=== PATIENT | female | born 1960 | race African-American/Black ===

== ENCOUNTER 2016-06-12 09:47 | Emergency (ER) | payer MEDICARE, MEDICAID ==
--- NOTE | 2016-06-12 10:11 | ER Document Report ---
ED GI/ - General Chief Complaint: Diarrhea Stated Complaint: ABDOMINAL PAIN Mode of Arrival: Ambulatory Information source: Patient TRAVEL OUTSIDE OF THE [place] IN LAST 30 DAYS: No - HPI Patient complains to provider of: Diarrhea Onset: Last week Timing/Duration: Gradual Quality of pain: Cramping Severity at maximum: Moderate Severity in ED: Mild Context: denies: Bad food, Out of the country travel, Location: LLQ, RLQ Vaginal bleeding (Compared to normal period): None Menstrual period history: Post-menopausal Exacerbated by: Food, Other - SEIZURE MED Relieved by: Denies - Related Data Allergies/Adverse Reactions: No Known Allergies Allergy (Verified 06/12/16 10:16) Past Medical History - General Information source: Patient - Social History Smoking Status: Never Smoker Cigarette use (# per day): No Chew tobacco use (# tins/day): No Frequency of alcohol use: None Drug Abuse: None Lives with: Family Family History: Reviewed & Not Pertinent Patient has suicidal ideation: No Patient has homicidal ideation: No - Past Medical History Cardiac Medical History: Reports: None Pulmonary Medical History: Reports: None Neurological Medical History: Reports: Hx Seizures, Other - AVM Endocrine Medical History: Reports: None Renal/ Medical History: Reports: None. Denies: Hx Peritoneal Dialysis Malignancy Medical History: Reports: None GI Medical History: Reports: None Musculoskeltal Medical History: Reports None Psychiatric Medical History: Reports: None Past Surgical History: Reports: Hx Section, Hx Neurologic Surgery - AVM clip, brain sx x 2. Denies: Hx Pacemaker - Immunizations Hx Diphtheria, Pertussis, Tetanus Vaccination: Yes Review of Systems - Review of Systems Constitutional: No symptoms reported. denies: Chills, Fever EENT: No symptoms reported Cardiovascular: No symptoms reported Respiratory: No symptoms reported Gastrointestinal: See HPI Genitourinary: No symptoms reported Female Genitourinary: Post menopausal Musculoskeletal: No symptoms reported Skin: No symptoms reported Neurological/Psychological: No symptoms reported Physical Exam - Vital signs Vitals: Temp Pulse Resp BP Pulse Ox 98.9 F 104 H 20 126/86 H 98 06/12/16 09:51 06/12/16 09:51 06/12/16 09:51 06/12/16 09:51 06/12/16 09:51 Interpretation: Tachycardic - General General appearance: Appears well, Alert In distress: None - HEENT Head: Normocephalic Eyes: Normal Conjunctiva: Normal Ears: Normal Nasal: Normal Mouth/Lips: Normal Mucous membranes: Normal - Respiratory Respiratory status: No respiratory distress - Cardiovascular Rhythm: Regular - Abdominal Inspection: Normal Distension: No distension Bowel sounds: Normal Tenderness: Nontender - Extremities General upper extremity: Normal inspection General lower extremity: Normal inspection - Neurological Neuro grossly intact: Yes Cognition: Normal Orientation: AAOx4 - Psychological Associated symptoms: Normal affect, Normal mood - Skin Skin Temperature: Warm Skin Moisture: Dry Skin Color: Normal Skin Turgor: Elastic Course - Vital Signs Vital signs: Temp Pulse Resp BP Pulse Ox 98.9 F 104 H 20 126/86 H 98 06/12/16 09:51 06/12/16 09:51 06/12/16 09:51 06/12/16 09:51 06/12/16 09:51 - Laboratory Result Diagrams: 06/12/16 11:00 06/12/16 11:00 Laboratory results interpreted by me: 06/12/16 06/12/16 06/12/16 11:00 11:00 12:35 MCH 26.5 L Sodium 145.9 H Glucose 120 H Urine Protein 30 H Urine Ketones 20 H Urine Blood SMALL H Urine Bilirubin SMALL H Urine Urobilinogen 4.0 H Urine Ascorbic Acid 40 H Discharge - Discharge Clinical Impression: Diarrhea Qualifiers: Diarrhea type: unspecified type Qualified Code(s): R19.7 - Diarrhea, unspecified Condition: Stable Disposition: HOME, SELF-CARE Instructions: Diarrhea, Nonspecific ([facility]) Additional Instructions: TAKE RENARD-PECTATE OR PEPTO-BISMOL IF NEEDED TO MAKE YOUR STOOLS MORE FORMED & SOLID. CONTINUE YOUR USUAL MEDS. FOLLOW UP WITH YOUR PRIMARY CARE PROVIDER NEEDED. Forms: Return to Work Referrals: MAURICIO KRAFT MD [Primary Care Provider] - Follow up as needed
[2016-06-12 11:16] LABS: ABSOLUTE EOSINOPHILS # (AUTO) 0.1 10^3/uL (0.0-0.6); ABSOLUTE MONOCYTES (AUTO) 0.5 10^3/uL (0.1-1.4); ABSOLUTE NEUT (AUTO) 3.8 10^3/uL (1.7-8.2); BASOPHILS % (AUTO) 0.7 % (0-2); EOSINOPHILS % (AUTO) 1.5 % (0-6); HEMATOCRIT 42.2 % (36.0-47.0); HEMOGLOBIN 13.5 g/dL (12.0-15.5); HGB HCT DIFFERENCE -1.7; LYMPHOCYTES % (AUTO) 18.6 % (13-45); MEAN CORPUSCULAR HEMOGLOBIN 26.5 pg (27.0-33.4); MEAN CORPUSCULAR VOLUME 83 fl (80-97); MONOCYTES % (AUTO) 8.6 % (3-13); RED CELL DISTRIBUTION WIDTH 13.3 % (11.5-14.0); SEGMENTED NEUTROPHILS % (AUTO) 70.6 % (42-78); WHITE BLOOD COUNT 5.4 10^3/uL (4.0-10.5)
[2016-06-12 11:36] LABS: ALANINE AMINOTRANSFERASE 42 U/L (9-52); ALBUMIN 3.6 g/dL (3.5-5.0); ALKALINE PHOSPHATASE 70 U/L (38-126); ANION GAP 15 (5-19); ASPARTATE AMINO TRANSFERASE 20 U/L (14-36); BILIRUBIN,DIRECT 0.4 mg/dL (0.0-0.4); BILIRUBIN,TOTAL 0.7 mg/dL (0.2-1.3); BLOOD UREA NITROGEN 15 mg/dL (7-20); CALCIUM 9.3 mg/dL (8.4-10.2); CARBON DIOXIDE 24 mmol/L (22-30); CHLORIDE 107 mmol/L (98-107); CREATININE RESULT 0.93 mg/dL (0.52-1.25); GLUCOSE 120 mg/dL (75-110); POTASSIUM 3.7 mmol/L (3.6-5.0); SODIUM 145.9 mmol/L (137-145); TOTAL PROTEIN 6.8 g/dL (6.3-8.2)
[2016-06-12 12:48] LABS: APPEARANCE,URINE SLIGHTLY-CLOUDY; BILIRUBIN,URINE SMALL (NEGATIVE); GLUCOSE, URINE NEGATIVE (NEGATIVE); KETONES,URINE 20 mg/dL (NEGATIVE); LEUKOCYTE ESTERASE,URINE NEGATIVE (NEGATIVE); NITRITE,URINE NEGATIVE (NEGATIVE); PROTEIN,URINE 30 mg/dL (NEGATIVE); URINE SPECIFIC GRAVITY 1.029
[2016-06-12 13:46] VITALS: BP 93/70
== END 2016-06-12 13:46 | disposition home or self-care (01) ==
LOC: ER 09:47
DX: R19.7 Diarrhea, unspecified (principal); R10.31 Right lower quadrant pain; R10.32 Left lower quadrant pain; R00.0 Tachycardia, unspecified
CPT/HCPCS: 36415; 80053; 81001; 85025; 99284

== ENCOUNTER 2017-06-02 09:01 | Emergency (ER) | payer MEDICARE, MEDICAID ==
--- NOTE | 2017-06-02 09:15 | ER Document Report ---
ED Medical Screen (RME) - General Chief Complaint: Leg Swelling Stated Complaint: SWOLLEN LEGS/FEET Time Seen by Provider: 06/02/17 09:12 Notes: RME DISCLOSURE I have seen this patient as part of a Rapid Medical Evaluation and, if applicable, placed any initially appropriate orders. The patient will be seen and fully evaluated, including a full history and physical exam, by a provider ( in Main ED or Fast Track) when a room becomes available. 56-year-old female here with complaints of bilateral lower extremity swelling that started yesterday and has progressively worsened. She has not tried anything for the symptoms. She denies any chest pain shortness of breath. She denies having been on her feet for an extended period of time. She is eating drinking and urinating per usual. She denies any prior history of kidney failure or DVT. EXAM BLE 1+ to 2+ pitting edema (to the level of just below the knees) TRAVEL OUTSIDE OF THE [place] IN LAST 30 DAYS: No - Related Data Allergies/Adverse Reactions: No Known Allergies Allergy (Verified 06/12/16 10:16) Past Medical History - Social History Chew tobacco use (# tins/day): No Frequency of alcohol use: None Drug Abuse: None Neurological Medical History: Reports: Hx Seizures Renal/ Medical History: Denies: Hx Peritoneal Dialysis Past Surgical History: Reports: Hx Section, Hx Neurologic Surgery - AVM clip, brain sx x 2. Denies: Hx Pacemaker - Immunizations Hx Diphtheria, Pertussis, Tetanus Vaccination: Yes Physical Exam - Vital signs Vitals: Temp Pulse Resp BP Pulse Ox 98.9 F 69 16 123/73 100 06/02/17 09:09 06/02/17 09:09 06/02/17 09:09 06/02/17 09:09 06/02/17 09:09 Course - Vital Signs Vital signs: Temp Pulse Resp BP Pulse Ox 98.9 F 69 16 123/73 100 06/02/17 09:09 06/02/17 09:09 06/02/17 09:09 06/02/17 09:09 06/02/17 09:09
[2017-06-02 09:42] LABS: ABSOLUTE MONOCYTES (AUTO) 0.2 10^3/uL (0.1-1.4); ABSOLUTE NEUT (AUTO) 2.5 10^3/uL (1.7-8.2); BASOPHILS % (AUTO) 0.8 % (0-2); EOSINOPHILS % (AUTO) 1.1 % (0-6); HEMATOCRIT 37.8 % (36.0-47.0); HEMOGLOBIN 12.2 g/dL (12.0-15.5); LYMPHOCYTES % (AUTO) 25.7 % (13-45); MEAN CORPUSCULAR HEMOGLOBIN 27.2 pg (27.0-33.4); MEAN CORPUSCULAR HGB CONC 32.3 g/dL (32.0-36.0); MEAN CORPUSCULAR VOLUME 84 fl (80-97); MONOCYTES % (AUTO) 6.1 % (3-13); PLATELET COUNT 191 10^3/uL (150-450); RED BLOOD COUNT 4.48 10^6/uL (3.72-5.28); RED CELL DISTRIBUTION WIDTH 13.7 % (11.5-14.0); SEGMENTED NEUTROPHILS % (AUTO) 66.3 % (42-78); TOTAL CELLS COUNTED % (AUTO) 100 %; WHITE BLOOD COUNT 3.7 10^3/uL (4.0-10.5)
[2017-06-02 09:58] LABS: ALANINE AMINOTRANSFERASE 17 U/L (9-52); ALKALINE PHOSPHATASE 61 U/L (38-126); ANION GAP 11 (5-19); ASPARTATE AMINO TRANSFERASE 12 U/L (14-36); BILIRUBIN,DIRECT 0.3 mg/dL (0.0-0.4); BILIRUBIN,TOTAL 0.4 mg/dL (0.2-1.3); BLOOD UREA NITROGEN 20 mg/dL (7-20); CALCIUM 9.6 mg/dL (8.4-10.2); CARBON DIOXIDE 22 mmol/L (22-30); CHLORIDE 115 mmol/L (98-107); GLUCOSE 84 mg/dL (75-110); POTASSIUM 3.9 mmol/L (3.6-5.0); SODIUM 147.9 mmol/L (137-145); TOTAL PROTEIN 6.9 g/dL (6.3-8.2)
--- NOTE | 2017-06-02 11:19 | RADIOLOGY REPORT (SQ) ---
EXAM DESCRIPTION: CHEST 2 VIEWS COMPLETED DATE/TIME: 06/02/2017 11:11 am REASON FOR STUDY: Peripheral edema COMPARISON: 11/10/2003. EXAM PARAMETERS: NUMBER OF VIEWS: two views TECHNIQUE: Digital Frontal and Lateral radiographic views of the chest acquired. RADIATION DOSE: NA LIMITATIONS: none FINDINGS: LUNGS AND PLEURA: No new opacities, masses or pneumothorax. No pleural effusion. MEDIASTINUM AND HILAR STRUCTURES: No masses or contour abnormalities. HEART AND VASCULAR STRUCTURES: Heart stable in size. No evidence for failure. BONES: No acute findings. HARDWARE: None in the chest. OTHER: No other significant finding. IMPRESSION: NO ACUTE RADIOGRAPHIC FINDING IN THE CHEST. NO SIGNIFICANT CHANGE FROM PRIOR STUDY. TECHNICAL DOCUMENTATION: JOB ID: [id number] [employer]- All Rights Reserved Reading location - IP/workstation name: [email or web address]
--- NOTE | 2017-06-02 11:24 | ER Document Report ---
ED General - General Chief Complaint: Leg Swelling Stated Complaint: SWOLLEN LEGS/FEET Time Seen by Provider: 06/02/17 09:12 Mode of Arrival: Ambulatory Information source: Patient Notes: 56-year-old female with a history of seizure disorder, AVM (stable) presents with complaint of bilateral lower extremity swelling that started 1 day prior to arrival. Patient states that she fell asleep at the kitchen table last night and when she awoke she had swelling of her legs. She is unsure of how long she was asleep sitting upright in the chair with her legs on the floor. She denies any shortness of breath, chest pain, changes in medication, headache , visual changes, fever, chills, nausea, vomiting, abdominal pain, back pain, dysuria, hematuria. She denies any recent trauma, surgery, travel, estrogen use , history of PE and DVT. TRAVEL OUTSIDE OF THE [place] IN LAST 30 DAYS: No - HPI Onset: Yesterday Onset/Duration: Sudden Quality of pain: No pain Exacerbated by: Walking Relieved by: Denies Similar symptoms previously: No Recently seen / treated by doctor: Yes - Related Data Allergies/Adverse Reactions: No Known Allergies Allergy (Verified 06/12/16 10:16) Past Medical History - General Information source: Patient, H Records - Social History Smoking Status: Former Smoker Chew tobacco use (# tins/day): No Frequency of alcohol use: None Drug Abuse: None Lives with: Alone Family History: Reviewed & Not Pertinent Patient has suicidal ideation: No Patient has homicidal ideation: No Neurological Medical History: Reports: Hx Seizures Renal/ Medical History: Denies: Hx Peritoneal Dialysis Past Surgical History: Reports: Hx Section, Hx Neurologic Surgery - AVM clip, brain sx x 2. Denies: Hx Pacemaker - Immunizations Hx Diphtheria, Pertussis, Tetanus Vaccination: Yes Review of Systems - Review of Systems Notes: She denies any shortness of breath, chest pain, changes in medication, headache , visual changes, fever, chills, nausea, vomiting, abdominal pain, back pain, dysuria, hematuria. She denies any recent trauma, surgery, travel, estrogen use , history of PE and DVT. Physical Exam - Vital signs Vitals: Temp Pulse Resp BP Pulse Ox 98.9 F 69 16 123/73 100 06/02/17 09:09 06/02/17 09:09 06/02/17 09:09 06/02/17 09:09 06/02/17 09:09 Interpretation: Normal. No: Hypotensive, Hypertensive, Hypoxic, Tachypneic, Febrile - Notes Notes: PHYSICAL EXAMINATION: GENERAL: Well-appearing, well-nourished and in no acute distress. HEAD: Atraumatic, normocephalic. EYES: Pupils equal round and reactive to light, extraocular movements intact, conjunctiva are normal. ENT: Nares patent, oropharynx clear without exudates. Moist mucous membranes. NECK: Normal range of motion, supple without lymphadenopathy LUNGS: Breath sounds clear to auscultation bilaterally and equal. No wheezes rales or rhonchi. HEART: Regular rate and rhythm without murmurs ABDOMEN: Soft, nontender, nondistended abdomen. No guarding, no rebound. No masses appreciated. Female : deferred Musculoskeletal: Normal range of motion, no pitting or edema. No cyanosis. Bilateral 1+ nonpitting edema. NEUROLOGICAL: Cranial nerves grossly intact. Normal speech, normal gait. Normal sensory, motor exams PSYCH: Normal mood, normal affect. SKIN: Warm, Dry, normal turgor, no rashes or lesions noted. Course - Re-evaluation Re-evalutation: Laboratory 06/02/17 06/02/17 06/02/17 09:30 09:30 09:30 WBC 3.7 L RBC 4.48 Hgb 12.2 Hct 37.8 MCV 84 MCH 27.2 MCHC 32.3 RDW 13.7 Plt Count 191 Seg Neutrophils % 66.3 Lymphocytes % 25.7 Monocytes % 6.1 Eosinophils % 1.1 Basophils % 0.8 Absolute Neutrophils 2.5 Absolute Lymphocytes 1.0 Absolute Monocytes 0.2 Absolute Eosinophils 0.0 Absolute Basophils 0.0 Sodium 147.9 H Potassium 3.9 Chloride 115 H Carbon Dioxide 22 Anion Gap 11 BUN 20 Creatinine 0.84 Est GFR ( Amer) > 60 Est GFR (Non-Af Amer) > 60 Glucose 84 Calcium 9.6 Total Bilirubin 0.4 Direct Bilirubin 0.3 Neonat Total Bilirubin Not Reportable Neonat Direct Bilirubin Not Reportable Neonat Indirect Bili Not Reportable AST 12 L ALT 17 Alkaline Phosphatase 61 NT-Pro-B Natriuret Pep 88 Total Protein 6.9 Albumin 4.0 Chest X-Ray 06/02/17 10:57 IMPRESSION: NO ACUTE RADIOGRAPHIC FINDING IN THE CHEST. NO SIGNIFICANT CHANGE FROM PRIOR STUDY. 06/02/17 15:51 56-year-old female with a history of seizure disorder, AVM (stable) presents with complaint of bilateral lower extremity swelling that started 1 day prior to arrival. Patient states that she fell asleep at the kitchen table last night and when she awoke she had swelling of her legs. She is unsure of how long she was asleep sitting upright in the chair with her legs on the floor. She denies any shortness of breath, chest pain, changes in medication, headache , visual changes, fever, chills, nausea, vomiting, abdominal pain, back pain, dysuria, hematuria. She denies any recent trauma, surgery, travel, estrogen use , history of PE and DVT. Vital signs stable upon arrival. Duplex of the lower extremities were obtained and negative for DVT. Patient has no evidence of cardiomegaly, pleural effusion or heart failure. Patient received Lasix p.o. and was provided ALFREDO hose. She was advised to follow-up with her primary care physician for follow- up. She was given a 5 day course of Lasix. She was discharged home in stable condition. - Vital Signs Vital signs: Temp Pulse Resp BP Pulse Ox 98.8 F 77 18 121/79 100 06/02/17 13:02 06/02/17 13:02 06/02/17 13:02 06/02/17 13:02 06/02/17 13:02 - Laboratory Result Diagrams: 06/02/17 09:30 06/02/17 09:30 Laboratory results interpreted by me: 06/02/17 06/02/17 09:30 09:30 WBC 3.7 L Sodium 147.9 H Chloride 115 H AST 12 L - Diagnostic Test Radiology reviewed: Image reviewed, Reports reviewed - EKG Interpretation by Ri EKG shows normal: Sinus rhythm Rate: Normal Rhythm: NSR Discharge - Discharge Clinical Impression: Peripheral edema Condition: Good Disposition: HOME, SELF-CARE Instructions: Dependent Edema ([facility]), Edema, Peripheral ([facility]) Additional Instructions: This scans performed on your leg showed no evidence of a clot. Your chest x- rays showed no evidence of fluid on your lungs. Your laboratory testing was also normal. He will be given 5 days of Lasix and compression stockings that you should wear every day during the day and remove at night. Please follow-up with your primary care physician in 3-5 days. Please only take your Lasix while at home. Prescriptions: Furosemide [Lasix 20 mg Tablet] 20 mg PO DAILY #5 tablet Referrals: MAURICIO KRAFT MD [Primary Care Provider] - Follow up in 3-5 days
[2017-06-02] MEDS: FUROSEMIDE 20 MG TABLET PO ONE (12:58)
[2017-06-02 13:04] VITALS: BP 121/79
--- NOTE | 2017-06-02 16:20 | XCELERA REPORT ---
[address] [address] Lower Extremity Venous Evaluation Name: JULIANNE ADAMS Age: 56 yrs Gender: Female : 1960 Patient Status: Emergency Patient Location: ER Study Date: 06/02/2017 11:30 AM Procedure: Color flow and duplex imaging bilaterally of the veins of the lower extremities as well as the Common Femoral veins. Reason For Study: PERFORM BILATERAL LE US; BLE swelling; eval DVT Ordering Physician: JUSTO HOFFMAN Performed By: Alise Deluca Right Sided Venous Evaluation Normal vessel filling wall to wall, compression and augmentation as well as Colour flow down to the infrageniculate veins. Left Sided Venous Evaluation Normal vessel filling wall to wall, compression and augmentation as well as Colour flow down to the infrageniculate veins. Interpretation Summary No duplex evidence of DVT or obstruction in the bilateral lower extremities. : JSUTO HOFFMAN [place]
== END 2017-06-02 13:05 | disposition home or self-care (01) ==
LOC: ER 09:01
DX: R60.0 Localized edema (principal); Q27.30 Arteriovenous malformation, site unspecified; Z87.891 Personal history of nicotine dependence
CPT/HCPCS: 99284; 36415; 85025; 80053; 83880; 93970 ×2; 71046; A9270

== ENCOUNTER 2018-06-23 13:54 | Emergency (ER) | payer MEDICARE, MEDICAID ==
--- NOTE | 2018-06-23 14:33 | ER Document Report ---
ED Medical Screen (RME) - General Chief Complaint: Headache Stated Complaint: HEADACHE Time Seen by Provider: 06/23/18 14:31 Primary Care Provider: MAURICIO KRAFT MD [Primary Care Provider] - Follow up as needed Mode of Arrival: Ambulatory Information source: Patient Notes: 57-year-old female presented to ED for complaint of a headache x3 days. She states she has a history of an AVM in which she cannot get relief from her headache for Tylenol to usually do a CAT scan to make sure that there is no complications. She states she is been told never to take anything but Tylenol for her headaches and to get followed up and checked out. Patient denies any nausea at this time and refused any nausea medication at this time. Patient is alert oriented respirations are unlabored answering questions appropriately walks with even steady gait. I have greeted and performed a rapid initial assessment of this patient. A comprehensive ED assessment and evaluation of the patient, analysis of test results and completion of medical decision making process will be conducted by an additional ED providers. Dictation of this chart was performed using voice recognition software; therefore, there may be some unintended grammatical errors. TRAVEL OUTSIDE OF THE [place] IN LAST 30 DAYS: No - Related Data Allergies/Adverse Reactions: No Known Allergies Allergy (Verified 06/23/18 13:55) Past Medical History Neurological Medical History: Reports: Hx Seizures Renal/ Medical History: Denies: Hx Peritoneal Dialysis Past Surgical History: Reports: Hx Section, Hx Neurologic Surgery - AVM clip, brain sx x 2. Denies: Hx Pacemaker - Immunizations Hx Diphtheria, Pertussis, Tetanus Vaccination: Yes Physical Exam - Vital signs Vitals: Temp Pulse Resp BP Pulse Ox 98.8 F 77 16 131/91 H 100 06/23/18 14:18 06/23/18 14:18 06/23/18 14:18 06/23/18 14:18 06/23/18 14:18 Course - Vital Signs Vital signs: Temp Pulse Resp BP Pulse Ox 98.8 F 77 16 131/91 H 100 06/23/18 14:18 06/23/18 14:18 06/23/18 14:18 06/23/18 14:18 06/23/18 14:18 Doctor's Discharge - Discharge Referrals: MAURICIO KRAFT MD [Primary Care Provider] - Follow up as needed
[2018-06-23 15:11] LABS: HEMATOCRIT 43.4 % (36.0-47.0); HEMOGLOBIN 13.8 g/dL (12.0-15.5); MEAN CORPUSCULAR HEMOGLOBIN 27.1 pg (27.0-33.4); MEAN CORPUSCULAR HGB CONC 31.8 g/dL (32.0-36.0); MEAN CORPUSCULAR VOLUME 85 fl (80-97); PLATELET COUNT 185 10^3/uL (150-450); RED CELL DISTRIBUTION WIDTH 14.3 % (11.5-14.0); WHITE BLOOD COUNT 4.7 10^3/uL (4.0-10.5)
[2018-06-23 15:25] LABS: ALANINE AMINOTRANSFERASE 19 U/L (9-52); ALBUMIN 4.5 g/dL (3.5-5.0); ALKALINE PHOSPHATASE 92 U/L (38-126); ANION GAP 13 (5-19); ASPARTATE AMINO TRANSFERASE 16 U/L (14-36); BILIRUBIN,DIRECT 0.2 mg/dL (0.0-0.4); BLOOD UREA NITROGEN 13 mg/dL (7-20); CALCIUM 9.7 mg/dL (8.4-10.2); CARBON DIOXIDE 20 mmol/L (22-30); CHLORIDE 110 mmol/L (98-107); GLUCOSE 95 mg/dL (75-110); POTASSIUM 4.3 mmol/L (3.6-5.0); SODIUM 143.1 mmol/L (137-145); TOTAL PROTEIN 8.2 g/dL (6.3-8.2)
[2018-06-23 15:33] LABS: ABSOLUTE LYMPHOCYTES# (MANUAL) 1.5 10^3/uL (0.5-4.7); ABSOLUTE MONOCYTES # (MANUAL) 0.2 10^3/uL (0.1-1.4); BASOPHILS % (MANUAL) 0 % (0-2); EOSINOPHILS % (MANUAL) 1 % (0-6); LYMPHOCYTES % (MANUAL) 32 % (13-45); MONOCYTES % (MANUAL) 4 % (3-13); SEGMENTED NEUTROPHILS % (MAN) 63 % (42-78); TOTAL CELLS COUNTED 100
[2018-06-23 15:35] LABS: ANISOCYTOSIS SLIGHT; OVALOCYTES 1+; PLATELET COMMENT ADEQUATE; PLATELET LARGE PRESENT; POIKILOCYTOSIS 1+
--- NOTE | 2018-06-23 15:50 | RADIOLOGY REPORT (SQ) ---
EXAM DESCRIPTION: CT HEAD WITHOUT COMPLETED DATE/TIME: 06/23/2018 3:06 pm REASON FOR STUDY: hx avm headache unrelieved by Tylenol COMPARISON: 06/29/2014, multiple priors TECHNIQUE: Axial images acquired through the brain without intravenous contrast. Images reviewed wi th bone, brain and subdural windows. Additional sagittal and coronal reconstructions were generated. Images stored on PACS. All CT scanners at this facility use dose modulation, iterative reconstruction, and/or weight based d osing when appropriate to reduce radiation dose to as low as reasonably achievable (ALARA). [facility]: Dose Right [facility]: CareDose [facility]: Dose Right [facility]: Teradose 4D [facility]: Smart PPS RADIATION DOSE: CT Rad equipment meets quality standard of care and radiation dose reduction techniq ues were employed. CTDIvol: 53.2 mGy. DLP: 911 mGy-cm. mGy. LIMITATIONS: None. FINDINGS: VENTRICLES: Normal size and contour. CEREBRUM: Again seen is the heterogeneous lobular mass within the right parietal lobes compatible wit h given history of AVM. There are scattered intra calcifications, stable. Findings grossly stable f rom multiple prior exams. No evidence of large vascular territory infarct. Remaining gannon-white dif ferentiation is preserved. CEREBELLUM: No masses. No hemorrhage. No alteration of density. No evidence for acute infarction. EXTRAAXIAL SPACES: No new fluid collection. Partially empty sella turcica. ORBITS AND GLOBE: No intra- or extraconal masses. Normal contour of globe without masses. CALVARIUM: No acute fracture. No destructive osseous lesions. Evidence of prior left frontoparietal craniotomy. PARANASAL SINUSES: No fluid or mucosal thickening. SOFT TISSUES: No mass or hematoma. OTHER: Metallic coils within the suprasellar region, unchanged. IMPRESSION: 1. Stable heterogeneous mass center within the right parietal region compatible with gi maru history of AVM. No evidence of significant interval change. 2. No other evidence of acute intracranial process. EVIDENCE OF ACUTE STROKE: NO. COMMENT: Quality ID # [id number]: Final reports with documentation of one or more dose reduction techniques (e.g., Automated exposure control, adjustment of the mA and/or kV according to patient size, use of iterative reconstruction technique) TECHNICAL DOCUMENTATION: JOB ID: [id number] [employer]- All Rights Reserved Reading location - IP/workstation name: [email or web address]
[2018-06-23 16:35] LABS: INTERNATIONAL RATION (INR) 0.99; PROTHROMBIN TIME 13.6 SEC (11.4-15.4)
[2018-06-23 16:36] LABS: PARTIAL THROMBOPLASTIN TIME 28.4 SEC (23.5-35.8)
--- NOTE | 2018-06-23 16:37 | ER Document Report ---
ED Headache - General Chief Complaint: Headache Stated Complaint: HEADACHE Time Seen by Provider: 06/23/18 14:31 Primary Care Provider: MAURICIO KRAFT MD [ACTIVE STAFF] - Follow up as needed Mode of Arrival: Ambulatory Information source: Patient Notes: Patient is a 57-year-old female who presents to the ER today with a history of an AVM and headache for 3 days, taking Tylenol without relief. Patient states that she has been told by her primary care provider that if she has a headache that does not resolve with Tylenol after couple of days she is to come get a CAT scan of her head to look at the AVM to make sure there are no complications. By the time I evaluate patient her headache is actually gone and she has just had her Tylenol prior to arrival at the ER. She denies any blurred vision, history of migraines, nausea or vomiting with this headache. TRAVEL OUTSIDE OF THE [place] IN LAST 30 DAYS: No - Related Data Allergies/Adverse Reactions: No Known Allergies Allergy (Verified 06/23/18 13:55) Past Medical History - General Information source: Patient - Social History Smoking Status: Never Smoker Frequency of alcohol use: None Drug Abuse: None Family History: Reviewed & Not Pertinent Patient has suicidal ideation: No Patient has homicidal ideation: No Neurological Medical History: Reports: Hx Migraine, Hx Seizures Renal/ Medical History: Denies: Hx Peritoneal Dialysis Past Surgical History: Reports: Hx Section, Hx Neurologic Surgery - AVM clip, brain sx x 2. Denies: Hx Pacemaker - Immunizations Hx Diphtheria, Pertussis, Tetanus Vaccination: Yes Review of Systems - Review of Systems Constitutional: No symptoms reported EENT: No symptoms reported Cardiovascular: No symptoms reported Respiratory: No symptoms reported Gastrointestinal: No symptoms reported Genitourinary: No symptoms reported Female Genitourinary: No symptoms reported Musculoskeletal: No symptoms reported Skin: No symptoms reported Hematologic/Lymphatic: No symptoms reported Neurological/Psychological: See HPI Physical Exam - Vital signs Vitals: Temp Pulse Resp BP Pulse Ox 98.8 F 77 16 131/91 H 100 06/23/18 14:18 06/23/18 14:18 06/23/18 14:18 06/23/18 14:18 06/23/18 14:18 - Notes Notes: PHYSICAL EXAMINATION: GENERAL: Well-appearing and in no acute distress. HEAD: Atraumatic, normocephalic. EYES: Pupils equal round and reactive to light, extraocular movements intact, sclera anicteric, conjunctiva are normal. ENT: ear canals without erythema or foreign body, TMs pearly wilson with good bony landmarks, nares patent, oropharynx clear without exudates. Moist mucous membranes. NECK: Normal range of motion, supple without lymphadenopathy LUNGS: CTAB and equal. No wheezes rales or rhonchi. HEART: Regular rate and rhythm without murmurs EXTREMITIES: Normal range of motion, no pitting edema. No cyanosis. NEUROLOGICAL: Cranial nerves grossly intact. Normal sensory/motor exams. PSYCH: Normal mood, normal affect. SKIN: Warm, Dry, normal turgor, no rashes or lesions noted Course - Re-evaluation Re-evalutation: 06/23/18 23:20 Lab work unremarkable today, CT of the head negative for any acute pathology, shows stable AVM. Patient's headache is completely subsided and she would like to go home. 06/23/18 23:20 - Vital Signs Vital signs: Temp Pulse Resp BP Pulse Ox 98.3 F 83 16 126/87 H 95 06/23/18 17:25 06/23/18 17:25 06/23/18 17:25 06/23/18 17:25 06/23/18 17:25 - Laboratory Result Diagrams: 06/23/18 14:50 06/23/18 14:50 Laboratory results interpreted by me: 06/23/18 06/23/18 14:50 14:50 MCHC 31.8 L RDW 14.3 H Chloride 110 H Carbon Dioxide 20 L Discharge - Discharge Clinical Impression: Headache Qualifiers: Headache type: unspecified Headache chronicity pattern: acute headache Intractability: not intractable Qualified Code(s): R51 - Headache Condition: Stable Disposition: HOME, SELF-CARE Additional Instructions: Return immediately for any new or worsening symptoms. Follow up with primary care provider, call tomorrow to make followup appointment. Prescriptions: Promethazine HCl [Phenergan 25 mg Tablet] 25 mg PO Q8H PRN #12 tablet PRN Reason: Referrals: MAURICIO KRAFT MD [ACTIVE STAFF] - Follow up as needed
[2018-06-23 17:37] VITALS: BP 126/87
== END 2018-06-23 17:30 | disposition home or self-care (01) ==
LOC: ER 13:54
DX: R51 Headache (principal); Q27.30 Arteriovenous malformation, site unspecified
CPT/HCPCS: 36415; 70450; 80053; 85025; 85610; 85730; 99284